=== PATIENT | male | born 1990 | race Caucasian/White ===

== ENCOUNTER 2024-09-30 05:34 | Emergency (ER) | payer OTHER | END 2024-09-30 06:00 | disposition home or self-care (01) | LOC: MW.ED 05:34 | DX: T51.1X1A Toxic effect of methanol, accidental (unintentional), initial encounter (principal); F17.210 Nicotine dependence, cigarettes, uncomplicated; Z75.8 Other problems related to medical facilities and other health care; X58.XXXA Exposure to other specified factors, initial encounter | CPT/HCPCS: 99283 ==